=== PATIENT | female | born 1995 | race Caucasian/White ===

== ENCOUNTER 2022-03-13 22:33 | Emergency (ER) | payer MEDICAID ==
[~2022-03-13] VITALS: Ht 154.9 cm; Wt 47.6 kg
[2022-03-13 23:06] VITALS: BP_SYST 105
--- NOTE | 2022-03-13 23:11 | NUR ---
Patient triaged and placed in waiting room. VSS and patient appears in no acute distress at this time. Accompanied by brother, awaiting available bed, and MD notified of need for MSE.
--- NOTE | 2022-03-14 00:05 | NUR ---
ER in triage examining patient.
--- NOTE | 2022-03-14 00:05 | NUR ---
PATIENT BROUGHT IN FOR [place], VOMITING , HEADACHES X 1 WEEK. DENIES ANY FEVER. DENES ANY PAIN. MD NOTIFIED.
[2022-03-14] MEDS ORDERED: IBUP-2018 PO (00:11)
[2022-03-14] MEDS ORDERED: METO-290 PO (00:11)
[2022-03-14 00:26] VITALS: BP_SYST 112
--- NOTE | 2022-03-14 00:26 | NUR ---
Patient given written and verbal discharge instructions and verbalizes understanding. ER MD discussed with patient the results and treatment provided. Patient in stable condition. ID arm band removed. Rx of MOTRIN AND REGLAN given. Patient educated on pain management and to follow up with PMD. Pain Scale 0/10 Opportunity for questions provided and answered. Medication side effect fact sheet provided.
== END 2022-03-14 00:26 | disposition home or self-care (01) ==
LOC: SED 22:33
DX: R51.9 Headache, unspecified (principal); M79.10 Myalgia, unspecified site; R11.2 Nausea with vomiting, unspecified; Z88.6 Allergy status to analgesic agent; Z20.822 Contact with and (suspected) exposure to COVID-19
CPT/HCPCS: 36415; 99283